=== PATIENT | male | born 1990 | race Caucasian/White ===

== ENCOUNTER → 2017-05-23 | Outpatient (CLI) | payer OTHER ==
--- NOTE | 2017-05-23 12:28 | DIAGNOSTIC IMAGING REPORT ---
LEFT FINGER(S) MIN 2 VIEWS CLINICAL HISTORY: 26 years-old Male presenting with LEFT 5TH PROXIMAL PHALANX FX. TECHNIQUE: Frontal, lateral, and oblique views of the left fifth finger were obtained. COMPARISON: None. FINDINGS: Acute fracture of the proximal phalanx of the left fifth finger coursing obliquely from the lateral mid diaphysis distally to the medial aspect of the distal metaphysis. The distal fracture fragment is displaced and medially by 2 mm. There is also suggestion of comminution at distal metaphysis with a second major fracture fragment noted anterolaterally. The fifth metacarpophalangeal joint and proximal fifth interphalangeal joints are congruent. IMPRESSION: 1. Mildly displaced minimally comminuted fracture of the proximal phalanx of the fifth finger described above. Electronically signed by: Lj Oviedo 05/23/2017 12:27 PM Dictated Date/Time: 05/23/2017 12:24 PM
== END | disposition home or self-care (01) ==
LOC: C.RDSM 14:32
PROVIDERS: ATTEND Physician Assistant
DX: S69.92XA Unspecified injury of left wrist, hand and finger(s), initial encounter (principal); X58.XXXA Exposure to other specified factors, initial encounter